=== PATIENT | female | born 1945 | race Caucasian/White ===

== ENCOUNTER → 2018-01-17 | Outpatient (CLI) | payer MEDICARE, OTHER ==
[~2018-01-17] MED LIST: AMI25 PO; AMIT-104 PO; AMLO-101 PO; AMLO2.5T74 PO; ASPI-1441 PO; ASPI-757 PO; ASPI-879 PO; ASPI325T22 PO; ATE50 PO; ATEN-65 PO; CEL100 PO; CELE-1 PO; CELE100C79 PO; CHOL100059 PO; DIA5 PO; DIAZ-308 PO; EST625 PO; FELO5TAB PO; FISH OIL1 CAP PO; FLUT9.9S; GABA-488 PO; HYDR-4309 PO; IRO150 PO; LOR5 PO; MULT-1 PO; NIT3 PO; OMEP-218 PO; OXYC-373 PO; OXYM-1 NS; PER PO; PRAV10TA45 PO; RANI150C14 PO; SIM10 PO; SOLI5TAB PO; WAR5 PO; WAR75 PO
--- NOTE | 2018-01-17 16:43 | EKG ---
FACILITY: [facility] - [place] PATIENT NAME: DAYANARA GOINS : [id number] MR: [id number] V: [id number] EXAM DATE: ORDERING PHYSICIAN: MICHAEL LYNN TECHNOLOGIST: CLAUDIA/CARLOS Test Reason : PRE OP CLEARANCE Blood Pressure : / mmHG Vent. Rate : 055 BPM Atrial Rate : 055 BPM P-R Int : 000 ms QRS Dur : 096 ms QT Int : 452 ms P-R-T Axes : 000 121 060 degrees QTc Int : 432 ms Atrial fibrillation Abnormal ECG When compared with ECG of 04-MAR-2017 13:24, No significant change was found Referred By: SHANE Confirmed By:
== END ==
LOC: RESP 16:17
PROVIDERS: ATTEND Surgery
DX: Z02.9 Encounter for administrative examinations, unspecified (principal)

== ENCOUNTER → 2018-01-23 | Outpatient (CLI) | payer MEDICARE, OTHER ==
--- NOTE | 2018-01-24 10:50 | RADIOLOGY IMAGING REPORT ---
FACILITY: [facility] - [place] PATIENT NAME: DAYANARA GOINS : [id number] MR: [id number] V: [id number] EXAM DATE: [id number] ORDERING PHYSICIAN: MICHAEL LYNN TECHNOLOGIST: Tima Delgadillo RDMS, [place] PROCEDURE:US RIGHT BREAST COMPLETE COMPARISON:None. INDICATIONS:CHECKING LYMPHNODES FOR BX FINDINGS: In the 1:30 position of the Right breast 6cm from the nipple there is a 3.4cm simple cyst. In the 3 o'clock position of the Right breast 6cm from the nipple there is 4.7mm simple cyst. No other masses cystic or solid are identified throughout the remainder of the Right breast. Images of the Right axilla demonstrated no evidence of Right axilla lymph nodes. DIAGNOSTIC CATEGORY 2--BENIGN FINDING. RECOMMENDATIONS: ROUTINE MAMMOGRAM AND CLINICAL EVALUATION. IMPRESSION: BIRADS 2: Benign finding. There are 2 small breast cysts 1 in the 1:30 position and 1 in the 3 o'clock position of the Right breast. No abnormal appearing lymph nodes are identified in the Right axilla. Dictated by: Sara Slade M.D. on 01/23/2018 at 17:06 Transcribed by: SHERYL on 01/24/2018 at 10:27 Approved by: Sara Slade M.D. on 01/24/2018 at 10:49 [facility]
== END ==
LOC: US 02:02
PROVIDERS: ATTEND Surgery
DX: N60.01 Solitary cyst of right breast (principal)

== ENCOUNTER → 2018-02-14 | Outpatient (CLI) | payer MEDICARE, OTHER | LOC: US 03:29 | PROVIDERS: ATTEND Internal Medicine Cardiovascular Disease | DX: I25.10 Atherosclerotic heart disease of native coronary artery without angina pectoris (principal); I51.7 Cardiomegaly | CPT/HCPCS: 93306 ==

== ENCOUNTER → 2018-02-15 | Outpatient (CLI) | payer MEDICARE, OTHER ==
[~2018-02-15] MED LIST changes: +REGADENOSON 0.4 MG/5 ML SYR ONE
--- NOTE | 2018-02-15 14:41 | RT STRESS TEST REPORT ---
[place] [facility] [place] DAYANARA GOINS : [id number] MR: [id number] V: [id number] EXAM DATE: ORDERING PHYSICIAN: SAMEER LOBO TECHNOLOGIST: Acquisition Time: 2018-02-15 14:35:31 Total Exercise Time: 00:01:00 Test Indications: Dyspnea Medications: see nuclear med sheet Protocol: LEXISCAN Max HR: 088 BPM 60% of Pred: 146 BPM Max BP: 183/089 mmHG Max Work Load: 1.0 METS Stress was performed using Lexiscan Protocol. She experienced chest tightness with infusion. This res olved quickly. EKGs show baseline rhythm is atrial fibrillation with controlled ventricular response. No significant ST-T changes were noted. No other dysrhythmias were recorded. Await TIDAL PETROLEUM Images. Confirmed by PRASHANTH WILSON ([id number]) on 02/15/2018 2:41:08 PM Referred By: Overread By: PRASHANTH WILSON
--- NOTE | 2018-02-15 16:08 | RADIOLOGY IMAGING REPORT ---
FACILITY: [facility] - [place] PATIENT NAME: Teresa Medrano : 1945 MR: [id number] V: [id number] EXAM DATE: ORDERING PHYSICIAN: SAMEER LOBO TECHNOLOGIST: Location: [facility] Patient: Teresa Medrano : 1945 Visit/Account:[id number] Date of Sevice: 02/15/2018 EXAMINATION: Single isotope SPECT imaging with regadenoson infusion and gated SPECT imaging. DATE OF EXAMINATION: 02/15/18. DATE OF INTERPRETATION: 02/15/18. REQUESTING PHYSICIAN: SAMEER LOBO. INDICATION: The patient is a 72-year-old F evaluated for dyspnea. PROCEDURE: After informed consent the patient received an intravenous injection of 12.7 mCi of Tc-99 m sestamibi followed at an appropriate time interval by rest imaging. The patient then subsequently received an intravenous infusion of 0.4 mg of regadenoson per protocol without complication. Resting heart rate was 65 bpm with a peak heart rate of 88 bpm. Blood pressure at rest was 183 / 89 and fol lowing infusion was 183 / 89. Baseline EKG demonstrates sinus rhythm. There were no EKG changes of ischemia following infusion. Symptoms were nonspecific. The patient then received an intravenous in jection of 29.8 mCi of Tc-99m sestamibi followed by stress imaging. RAW DATA: Examination of the summed raw data revealed a good quality study. MYOCARDIAL PERFUSION: The tomographic images demonstrate normal myocardial perfusion with no evidenc e of infarct or ischemia. There is no TID. GATED IMAGES: The gated images demonstrate hyperdynamic ejection fraction >70% with normal wall erne on and thickening. IMPRESSION: 1. Nondiagnostic Lexiscan stress ECG 2. Normal myocardial perfusion scan. 3. Hyperdynamic LV systolic function; LVEF >70%. 4. Based on the results of this exam, the patient appears to be at low risk for future cardiovascular events. Report Dictated By: Anish Chilel at 02/15/2018 4:02 PM Report E-Signed By: Anish Chilel at 02/15/2018 4:04 PM WSN:[id number]
== END ==
LOC: NUC 01:07
PROVIDERS: ATTEND Internal Medicine Cardiovascular Disease
DX: I25.10 Atherosclerotic heart disease of native coronary artery without angina pectoris (principal); R06.02 Shortness of breath
CPT/HCPCS: 93017; J2785; 78452; A9500

== ENCOUNTER → 2018-03-17 | Outpatient (CLI) | payer MEDICARE, OTHER ==
[~2018-03-17] MED LIST changes: -REGADENOSON 0.4 MG/5 ML SYR ONE
== END ==
LOC: LAB 15:21
PROVIDERS: ATTEND Physician Assistant
DX: I49.5 Sick sinus syndrome (principal)
CPT/HCPCS: 36415; 82040; 82247; 82310; 82374; 82435; 82565; 82947; 84075; 84132; 84155; 84295; 84450; 84460; 84520; 85027

== ENCOUNTER → 2018-04-10 | Outpatient (CLI) | payer MEDICARE, OTHER ==
[~2018-04-10] MED LIST changes: -HYDR-4309 PO; +HYDR-653 PO
--- NOTE | 2018-04-10 14:28 | RADIOLOGY IMAGING REPORT ---
FACILITY: [facility] PATIENT NAME: Teresa Medrano : 1945 MR: [id number] V: [id number] EXAM DATE: ORDERING PHYSICIAN: TRUDI LOYOLA TECHNOLOGIST: Location: [facility] - [place] Patient: Teresa Medrano : 1945 Visit/Account:[id number] Date of Sevice: 04/10/2018 CHEST PA AND LAT History: Swelling and pain left shoulder x4 days FINDINGS: Comparison studies: 10/08/2015 Tubes and Lines: None. Lungs and pleura: Well aerated. No evidence of focal consolidation or pleural effusions. Mediastinum: normal. Cardiac silhouette: Interval placement of a small leadless implantable pacemaker in the right ventric le. Cardiac silhouette normal in size. Osseous structures: Unremarkable for age . I see no evidence of radiographic abnormality in the general area of concern. The left glenohumeral joint, however, is excluded from the [id number]. IMPRESSION: No acute cardiopulmonary pathology identified. Report Dictated By: Tariq Larsen MD at 04/10/2018 2:22 PM Report E-Signed By: Tariq Larsen MD at 04/10/2018 2:24 PM WSN:[email or web address]
== END ==
LOC: RAD 11:26
PROVIDERS: ATTEND Nurse Practitioner Family
DX: M79.602 Pain in left arm (principal)
CPT/HCPCS: 71046

== ENCOUNTER 2018-04-15 12:03 | Emergency (ER) | payer MEDICARE, OTHER ==
[2018-04-15 12:07] VITALS: BP 126/64
[2018-04-15] MEDS ORDERED: CYCL-277 PO (12:10)
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
== END 2018-04-15 13:25 | disposition home or self-care (01) ==
LOC: ER 12:10
DX: S50.11XA Contusion of right forearm, initial encounter (principal); W20.8XXA Other cause of strike by thrown, projected or falling object, initial encounter
CPT/HCPCS: 73090; 99283; A4565

== ENCOUNTER 2018-06-18 15:11 | Emergency (ER) | payer MEDICARE, OTHER ==
[~2018-06-18 15:11] MED LIST changes: +CYCL-277 PO
--- NOTE | 2018-06-18 15:26 | ER Report ---
History and Physical Time Seen By MD: 15:25 HPI/ROS CHIEF COMPLAINT: Back, left arm and chest pain HISTORY OF PRESENT ILLNESS: 73-year-old female patient presents to emergency room with complaint of intermittent pain starts off behind her left shoulder blade that radiates up over into her chest and lateral left arm. Patient does have a pacemaker and she's concerned that that may be part of the problem. She also is concerned she may be having small VT. She states this typically occurs at nighttime. She states the when she we'll get off that seems to be better. She does state that it will happen occasionally in the daytime, however she is often active and does not notice it. She denies having any fevers, chills, nausea, vomiting or diarrhea. Patient states she is not taking any medication for this. She states this been going on for the last 4 days. REVIEW OF SYSTEMS: Respiratory: No cough, no dyspnea. Cardiovascular: As noted above Gastrointestinal: No vomiting, no abdominal pain. Musculoskeletal: No back pain. Allergies: Coded Allergies: latex (Verified Allergy, Severe, HIVES, 06/18/18) oxymetazoline (Verified Allergy, Severe, 06/18/18) "Heart goes nuts" phenylephrine (Verified Allergy, Severe, 06/18/18) "Heart goes nuts" xylometazoline (Verified Allergy, Severe, 06/18/18) "Heart goes nuts" adhesive tape (Verified Allergy, Intermediate, Blisters, 06/18/18) Blisters Home Meds Active Scripts Cyclobenzaprine Hcl (CYCLOBENZAPRINE HCL) 10 Mg Tablet, 5 MG PO TID PRN for MUSCLE SPASMS, #9 TAB Prov:JONAH WONG DUST [employer]KER 06/18/18 Reported Medications Cyclobenzaprine Hcl (CYCLOBENZAPRINE HCL) 5 Mg Tablet, 10 MG PO TID, #18 TAB 04/15/18 Amitriptyline Hcl (AMITRIPTYLINE HCL) 10 Mg Tablet, 10 MG PO QHS, #5 TAB 01/18/18 Aspirin (ASPIRIN) 325 Mg Tablet, 325 MG PO QDAY, TAB 12/16/16 Gabapentin (NEURONTIN) 100 Mg Capsule, 100 MG PO 3-4XD, CAPSULE 12/16/16 Celecoxib (CELEBREX) 100 Mg Capsule, 100 MG PO BID, CAPSULE 12/16/16 Amlodipine Besylate (NORVASC) 5 Mg Tablet, 1 TAB PO QDAY, TAB 09/22/15 Solifenacin Succinate (VESICARE) 5 Mg Tablet, 5 MG PO DAILY 10/18/14 Fluticasone Propionate (Flonase Allergy Relief) 9.9 Ml [place].susp, 1 SPRAY NA QHS 10/18/14 Cholecalciferol (Vitamin D3) (VITAMIN D3) 1,000 Unit Capsule, 1000 UNIT PO BID, CAPSULE 10/18/14 Atenolol (ATENOLOL) 25 Mg Tablet, 1 TAB PO BID, TAB TAKE ONE TABLET BY MOUTH TWICE A DAY 10/18/14 Nitroglycerin (Nitrostat) 0.3 Mg Subl, 0.4 MG PO PRN, 0 Refills 03/07/11 [place]-3 Fatty Acids (Fish Oil) 1 Cap Capsule, 1 CAP PO BID BID 03/06/11 Ranitidine Hcl (Zantac) 150 Mg Capsule, 150 MG PO AT BEDTIME 03/06/11 Omeprazole Magnesium (Prilosec Otc) 20 Mg Tablet.dr, 20 MG PO QDAY 03/06/11 Estrogens Conjugated (Premarin) 0.625 Mg Tab, 0.3 MG PO QDAY 03/06/11 Past Medical/Surgical History Patient has a past medical history of TIA, migraines, mitral valve prolapse, atrial fibrillation, hyperlipidemia, histoplasmosis, staph aureus and lung, occasional incontinence, hip bursitis, anxiety. Patient has surgical history of a cyst removed from neck, deviated septum, back surgery, carpal tunnel release, ulnar nerve surgery, bladder rebuild, hysterectomy, umbilical hernia repair, heart catheter. Patient has a family medical history of CAD, stroke. Reviewed Nurses Notes: Yes Hx Smoking: No Smoking Status: Never Smoker Hx Substance Use Disorder: No Hx Alcohol Use: No Constitutional Vital Sign - Last 24 Hours 06/18/18 06/18/18 06/18/18 06/18/18 15:22 15:25 15:26 15:30 Temp 97.5 Pulse 66 72 Resp 14 B/P (MAP) 141/82 141/82 (101) 139/91 (107) Pulse Ox 90 96 O2 Delivery Room Air 06/18/18 06/18/18 06/18/18 06/18/18 15:41 15:56 16:00 16:11 Pulse 63 90 64 Resp 8 9 Pulse Ox 97 94 95 O2 Flow Rate 2.0 06/18/18 06/18/18 06/18/18 06/18/18 16:16 16:30 16:31 16:46 Pulse 65 61 60 Resp 9 16 13 B/P (MAP) 130/63 (85) Pulse Ox 97 97 95 Physical Exam General Appearance: The patient is alert, has no immediate need for airway protection and no current signs of toxicity. Respiratory: Chest is non tender, lungs are clear to auscultation. Cardiac: regular rate and rhythm Gastrointestinal: Abdomen is soft and non tender, no masses, bowel sounds normal. Musculoskeletal: Neck: Neck is non tender. The left trapezius muscle is extremely tight. Extremities have full range of motion and are non tender. Skin: No rashes or lesions. DIFFERENTIAL DIAGNOSIS: After history and physical exam differential diagnosis was considered for chest pain including but not limited to myocardial ischemia, pericarditis pulmonary embolus, chest wall pain, pleural inflammation and pulmonary infectious causes. Medical Decision Making Data Points Result Diagram: 06/18/18 1546 06/18/18 1546 Laboratory Hematology Test 06/18/18 15:46 Red Blood Count 4.84 M/uL (4.17-5.56) Mean Corpuscular Volume 87.6 fL (80.0-96.0) Mean Corpuscular Hemoglobin 29.2 pg (26.0-33.0) Mean Corpuscular Hemoglobin Concent 33.4 g/dL (32.0-36.0) Red Cell Distribution Width 15.0 % (11.5-14.5) Mean Platelet Volume 8.1 fL (7.2-11.1) Neutrophils (%) (Auto) 59.6 % (39.4-72.5) Lymphocytes (%) (Auto) 27.4 % (17.6-49.6) Monocytes (%) (Auto) 10.4 % (4.1-12.4) Eosinophils (%) (Auto) 1.5 % (0.4-6.7) Basophils (%) (Auto) 1.1 % (0.3-1.4) Nucleated RBC Relative Count (auto) 0.1 /100WBC Neutrophils # (Auto) 4.2 K/uL (2.0-7.4) Lymphocytes # (Auto) 1.9 K/uL (1.3-3.6) Monocytes # (Auto) 0.7 K/uL (0.3-1.0) Eosinophils # (Auto) 0.1 K/uL (0.0-0.5) Basophils # (Auto) 0.1 K/uL (0.0-0.1) Nucleated RBC Absolute Count (auto) 0.00 K/uL Prothrombin Time 13.1 seconds (12.0-14.4) Prothromb Time International Ratio 0.99 Activated Partial Thromboplast Time 30 seconds (23-35) Sodium Level 140 mmol/L (137-145) Potassium Level 4.4 mmol/L (3.5-5.0) Chloride Level 104 mmol/L (98-107) Carbon Dioxide Level 27 mmol/L (22-31) Blood Urea Nitrogen 22 mg/dl (7-18) Creatinine 0.70 mg/dl (0.52-1.04) Glomerular Filtration Rate Calc > 60.0 Random Glucose 88 mg/dl (75-110) Calcium Level 9.7 mg/dl (8.4-10.2) Total Bilirubin 0.5 mg/dl (0.2-1.3) Aspartate Amino Transf (AST/SGOT) 27 U/L (0-35) Alanine Aminotransferase (ALT/SGPT) 23 U/L (0-56) Alkaline Phosphatase 79 U/L (0-126) Troponin I < 0.012 ng/ml Total Protein 7.9 g/dl (6.3-8.2) Albumin 4.5 g/dl (3.5-5.0) Chemistry Test 06/18/18 15:46 White Blood Count 7.0 k/uL (4.5-11.0) Red Blood Count 4.84 M/uL (4.17-5.56) Hemoglobin 14.2 g/dL (12.0-16.0) Hematocrit 42.4 % (34.0-47.0) Mean Corpuscular Volume 87.6 fL (80.0-96.0) Mean Corpuscular Hemoglobin 29.2 pg (26.0-33.0) Mean Corpuscular Hemoglobin Concent 33.4 g/dL (32.0-36.0) Red Cell Distribution Width 15.0 % (11.5-14.5) Platelet Count 257 K/uL (150-450) Mean Platelet Volume 8.1 fL (7.2-11.1) Neutrophils (%) (Auto) 59.6 % (39.4-72.5) Lymphocytes (%) (Auto) 27.4 % (17.6-49.6) Monocytes (%) (Auto) 10.4 % (4.1-12.4) Eosinophils (%) (Auto) 1.5 % (0.4-6.7) Basophils (%) (Auto) 1.1 % (0.3-1.4) Nucleated RBC Relative Count (auto) 0.1 /100WBC Neutrophils # (Auto) 4.2 K/uL (2.0-7.4) Lymphocytes # (Auto) 1.9 K/uL (1.3-3.6) Monocytes # (Auto) 0.7 K/uL (0.3-1.0) Eosinophils # (Auto) 0.1 K/uL (0.0-0.5) Basophils # (Auto) 0.1 K/uL (0.0-0.1) Nucleated RBC Absolute Count (auto) 0.00 K/uL Prothrombin Time 13.1 seconds (12.0-14.4) Prothromb Time International Ratio 0.99 Activated Partial Thromboplast Time 30 seconds (23-35) Glomerular Filtration Rate Calc > 60.0 Calcium Level 9.7 mg/dl (8.4-10.2) Total Bilirubin 0.5 mg/dl (0.2-1.3) Aspartate Amino Transf (AST/SGOT) 27 U/L (0-35) Alanine Aminotransferase (ALT/SGPT) 23 U/L (0-56) Alkaline Phosphatase 79 U/L (0-126) Troponin I < 0.012 ng/ml Total Protein 7.9 g/dl (6.3-8.2) Albumin 4.5 g/dl (3.5-5.0) Coagulation Test 06/18/18 15:46 Prothrombin Time 13.1 seconds Prothromb Time International Ratio 0.99 Activated Partial Thromboplast Time 30 seconds EKG/Imaging EKG Interpretation 12 lead EKG: Rhythm: A. fib with PACs, patient also has an on demand pacemaker. [place]: normal QRS: normal ST segments: Nonspecific ST abnormality Imaging EXAMINATION: Chest 2 Views HISTORY: Chest pain. COMPARISON: 04/10/2018. FINDINGS: The lungs are clear. No focal consolidation or pleural effusion. No pneumothorax. Normal heart size and pulmonary vascularity, with stable cardiomediastinal conto urs. A leadless pacemaker projects over the right ventricle, stable in position. No acute osseous findings in the chest. IMPRESSION: No evidence of acute cardiopulmonary disease. Stable exam. Report Dictated By: Pj Damon MD at 06/18/2018 4:08 PM Report E-Signed By: Pj Damon MD at 06/18/2018 4:10 PM ED Course/Re-evaluation ED Course Patient was admitted to an exam room, history and physical were obtained. Differential diagnoses were considered. On examination lungs are clear, heart is regular, abdomen soft nontender. Patient does have significant muscle tightness to the left trapezius muscle. A CBC, CMP, troponin, EKG, PT, PTT were done. The lab results were unremarkable, troponin was undetectable. EKG showed atrial fibrillation with PACs. Chest x-ray was negative. I discussed the findings with the patient. I do not believe that she is having a heart attack, however I do believe that she has muscle spasms which are worsened with laying down at night. As a result we will go ahead and treat her with Flexeril. She is to limit her activity by pain. 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 Patient states she did have an appointment on the eighth. Looking through the schedule for specialist coming to [place] her director of hotel operations does have a partner this up on the fourth, I encouraged her to call tomorrow to see if she will be able to get in to get her pacemaker interrogated on the fourth. Patient and her verbalized understanding and agreement with plan. Decision to Disposition Date: Jun 18, 2018 Decision to Disposition Time: 16:44 Depart Departure Latest Vital Signs Vital Signs Date Time Temp Pulse Resp B/P (MAP) Pulse Ox O2 Delivery O2 Flow Rate FiO2 06/18/18 16:46 60 13 95 06/18/18 16:30 130/63 (85) 06/18/18 16:00 2.0 06/18/18 15:22 97.5 Room Air Impression: Primary Impression: Muscle spasm Condition: Improved Disposition: HOME OR SELF-CARE Referrals: TRUDI LOYOLA (PCP) New Scripts Cyclobenzaprine Hcl (CYCLOBENZAPRINE HCL) 10 Mg Tablet 5 MG PO TID PRN for MUSCLE SPASMS, #9 TAB Prov: JONAH WONG 06/18/18 Patient Instructions: Muscle Spasm (ED) Additional Instructions: Limit activity by pain. Take the muscle relaxers especially at night. Follow up with Dr. Higginbotham to get your pacemaker challenge. Return to the ER if condition worsens. Increase fluid intake. Continue with normal activity. JONAH WONG Jun 18, 2018 15:25
[2018-06-18] MEDS ORDERED: ASPIRIN 81 MG CHEW PO ONE (15:35)
[2018-06-18 15:54] LABS: PLATELET COUNT, AUTOMATED 257 K/uL (150-450)
--- NOTE | 2018-06-18 16:03 | EKG ---
FACILITY: [facility] [place] PATIENT NAME: DAYANARA GOINS : [id number] MR: [id number] V: [id number] EXAM DATE: ORDERING PHYSICIAN: JONAH WONG TECHNOLOGIST: Test Reason : CHEST PAIN Blood Pressure : / mmHG Vent. Rate : 063 BPM Atrial Rate : 500 BPM P-R Int : 000 ms QRS Dur : 090 ms QT Int : 438 ms P-R-T Axes : 000 129 069 degrees QTc Int : 448 ms Demand pacemaker, interpretation is based on intrinsic rhythm Atrial fibrillation Left posterior fascicular block Nonspecific ST abnormality , probably digitalis effect Abnormal ECG When compared with ECG of 17-JAN-2018 15:25, Electronic demand pacing is now present T wave inversion now evident in Anterior leads Confirmed by MICHAEL OSEI ([id number]) on 06/19/2018 6:44:48 AM Referred By: Confirmed By:MICHAEL OSEI
--- NOTE | 2018-06-18 16:13 | RADIOLOGY IMAGING REPORT ---
FACILITY: [facility] [place] PATIENT NAME: Teresa Medrano : 1945 MR: [id number] V: [id number] EXAM DATE: ORDERING PHYSICIAN: JONAH WONG TECHNOLOGIST: Location: [facility] Patient: Teresa Medrano : 1945 Visit/Account:[id number] Date of Sevice: 06/18/2018 EXAMINATION: Chest 2 Views HISTORY: Chest pain. COMPARISON: 04/10/2018. FINDINGS: The lungs are clear. No focal consolidation or pleural effusion. No pneumothorax. Normal heart size and pulmonary vascularity, with stable cardiomediastinal contours. A leadless pacem corinne projects over the right ventricle, stable in position. No acute osseous findings in the chest. IMPRESSION: No evidence of acute cardiopulmonary disease. Stable exam. Report Dictated By: Pj Damon MD at 06/18/2018 4:08 PM Report E-Signed By: Pj Damon MD at 06/18/2018 4:10 PM WSN:[id number]
[2018-06-18 16:19] LABS: INR 0.99
[2018-06-18 16:30] VITALS: BP 130/63
[2018-06-18] MEDS ORDERED: CYCL10TA29 PO (16:42)
[2018-06-18] MEDS ORDERED: CYCLOBENZAPRINE HCL 10 MG TH PO ONE (16:50)
== END 2018-06-18 17:01 | disposition home or self-care (01) ==
LOC: ER 15:32
DX: M62.838 Other muscle spasm (principal); Z95.0 Presence of cardiac pacemaker
CPT/HCPCS: 71046; 84484; 85025; 85610; 85730; 93005; 99284; A9270; 82040; 82247; 82310; 82374; 82435; 82565; 82947; 84075; 84132; 84155; 84295; 84450; 84460; 84520

== ENCOUNTER 2018-06-23 13:32 | Emergency (ER) | payer MEDICARE, OTHER ==
[~2018-06-23 13:32] MED LIST changes: +CYCL10TA29 PO
[2018-06-23] MEDS ORDERED: AMOX/CLAV 875 MG TAB PO ONE (13:55)
[2018-06-23] MEDS ORDERED: LIDOCAINE/SOD BICARB 8.4% SYR SC ONE (14:05)
[2018-06-23] MEDS ORDERED: WATER STERILE IRRIG(*) 1000ML 1,000 ML ONE (14:43)
[2018-06-23 15:00] VITALS: BP 150/69
[2018-06-23] MEDS ORDERED: AMOX-559 PO (15:39)
--- NOTE | 2018-06-23 15:40 | ER Report ---
History and Physical Time Seen By MD: 13:45 Hx. of Stated Complaint: IGUANA BITE HPI/ROS CHIEF COMPLAINT: laceration HISTORY OF PRESENT ILLNESS: Pt was petting her iguana 1 hr [employer] when it suddenly bit her left index finger. It did not clamp down; she was easily able to extract it. She irrigated at home with water and iodine, and presented due to continued bleeding. Denies loos of sensation. Pain is moderate. She denies hamilton/chills/ fever/n/v/other injuries. Tetanus UTD last year. REVIEW OF SYSTEMS: Constitutional: No fever, no chills Cardiovascular: No chest pain, no palpitations. Respiratory: No cough, no shortness of breath. Gastrointestinal: No abdominal pain, no vomiting. Musculoskeletal: above Skin: above Neurological: No headache. Remainder of the 14 system rev: Yes Allergies: Coded Allergies: latex (Verified Allergy, Severe, HIVES, 06/18/18) oxymetazoline (Verified Allergy, Severe, 06/18/18) "Heart goes nuts" phenylephrine (Verified Allergy, Severe, 06/18/18) "Heart goes nuts" xylometazoline (Verified Allergy, Severe, 06/18/18) "Heart goes nuts" adhesive tape (Verified Allergy, Intermediate, Blisters, 06/18/18) Blisters Home Meds Active Scripts Amoxicillin/Pot Clav 875-125 Mg Tab (AUGMENTIN 875-125 TABLET) 1 Each Tablet, 1 TAB PO Q12H for 4 Days, #8 TAB Prov:GLADIS PARSON MD 06/23/18 Cyclobenzaprine Hcl (CYCLOBENZAPRINE HCL) 10 Mg Tablet, 5 MG PO TID PRN for MUSCLE SPASMS, #9 TAB Prov:JONAH WONG 06/18/18 Reported Medications Cyclobenzaprine Hcl (CYCLOBENZAPRINE HCL) 5 Mg Tablet, 10 MG PO TID, #18 TAB 04/15/18 Amitriptyline Hcl (AMITRIPTYLINE HCL) 10 Mg Tablet, 10 MG PO QHS, #5 TAB 01/18/18 Aspirin (ASPIRIN) 325 Mg Tablet, 325 MG PO QDAY, TAB 12/16/16 Gabapentin (NEURONTIN) 100 Mg Capsule, 100 MG PO 3-4XD, CAPSULE 12/16/16 Celecoxib (CELEBREX) 100 Mg Capsule, 100 MG PO BID, CAPSULE 12/16/16 Amlodipine Besylate (NORVASC) 5 Mg Tablet, 1 TAB PO QDAY, TAB 09/22/15 Solifenacin Succinate (VESICARE) 5 Mg Tablet, 5 MG PO DAILY 10/18/14 Fluticasone Propionate (Flonase Allergy Relief) 9.9 Ml [place].susp, 1 SPRAY NA QHS 10/18/14 Cholecalciferol (Vitamin D3) (VITAMIN D3) 1,000 Unit Capsule, 1000 UNIT PO BID, CAPSULE 10/18/14 Atenolol (ATENOLOL) 25 Mg Tablet, 1 TAB PO BID, TAB TAKE ONE TABLET BY MOUTH TWICE A DAY 10/18/14 Nitroglycerin (Nitrostat) 0.3 Mg Subl, 0.4 MG PO PRN, 0 Refills 03/07/11 [place]-3 Fatty Acids (Fish Oil) 1 Cap Capsule, 1 CAP PO BID BID 03/06/11 Ranitidine Hcl (Zantac) 150 Mg Capsule, 150 MG PO AT BEDTIME 03/06/11 Omeprazole Magnesium (Prilosec Otc) 20 Mg Tablet.dr, 20 MG PO QDAY 03/06/11 Estrogens Conjugated (Premarin) 0.625 Mg Tab, 0.3 MG PO QDAY 03/06/11 Hx Smoking: No Smoking Status: Never Smoker Hx Substance Use Disorder: No Hx Alcohol Use: No Constitutional Vital Sign - Last 24 Hours 06/23/18 06/23/18 06/23/18 06/23/18 13:32 13:35 13:36 14:00 Temp 97.6 Pulse ??? 86 Resp 14 B/P (MAP) 152/85 (107) 152/85 125/66 (85) Pulse Ox 90 06/23/18 06/23/18 06/23/18 06/23/18 14:02 14:30 14:32 15:00 Pulse 60 61 B/P (MAP) 142/88 (106) 150/69 (96) Pulse Ox 90 95 Physical Exam General Appearance: The patient is alert, has no immediate need for airway protection and no current signs of toxicity. Eyes: Pupils equal and round no injection. Respiratory: lungs clear to auscultation bilaterally Cardiac: regular rate and rhythm Musculoskeletal: Extremities have full range of motion and are non tender with exception of left index finger; Skin: left index finger; 2 1cm lacerations that are on the lateral and medial aspect of the finger just distal to the left PIP. additional 0.4mm intact laceration at the radial distal finger that extends to the nail bed, without ac tive bleeding. DIFFERENTIAL DIAGNOSIS: After history and physical exam differential diagnosis was considered for bone, tendon, joint injury, foreign body, risk for infection. Medical Decision Making ED Course/Re-evaluation ED Course Pt presents after reptilian bite by her michelle. This is considered a dirty wound, even with thorough irrigation. Augmentin administered prior to irrigation. I irrigated and explored thoroughly until I could be reasonably sure no deep structures involved. Repaired in order to decrease bleeding; therefore distal laceration left open due to infection risk. Pt understands SRP's and will take augmentin prophylactically. Procedure Procedure: Laceration repair. Verbal consent was obtained from the patient. The 1cm x 2 laceration on the index finger was anesthetized via digital block at the MCP joint. 4mL of a 50% solution of 0.5%marcaine and 1% buffered lidocaine was used. The wound was irrigated thoroughly with 600mL of NS, draped and explored to its base with a cotton tip applicator and hemostats There were no deep structures involved. Specifically, no joint capsule disruption, no bony fragments. No tendon injury was identified. the laceration did not extend to midline dorsal/volar aspect of the finger. The wound was repaired with 10 x 4.0 ethilon sutures. The wound repair was simple. The procedure was performed by myself. Decision to Disposition Date: Jun 23, 2018 Decision to Disposition Time: 15:29 Depart Departure Latest Vital Signs Vital Signs Date Time Temp Pulse Resp B/P (MAP) Pulse Ox O2 Delivery O2 Flow Rate FiO2 06/23/18 15:00 150/69 (96) 06/23/18 14:32 61 95 06/23/18 13:36 97.6 14 Impression: Primary Impression: Reptile bite Condition: Improved Disposition: HOME OR SELF-CARE Referrals: TRUDI LOYOLA [employer] (PCP) New Scripts Amoxicillin/Pot Clav 875-125 Mg Tab (AUGMENTIN 875-125 TABLET) 1 Each Tablet 1 TAB PO Q12H for 4 Days, #8 TAB Prov: GLADIS PARSON MD 06/23/18 Patient Instructions: Finger Laceration (ED) Additional Instructions: As we discussed; have sutures removed in 7 days. Return for redness, swelling, uncontrolled pain, or any concerns. Keep covered for 48 hours, then uncover, gently rinse, and apply bacitracin 2-3 times daily, with bandage as needed. Problem Qualifiers Primary Impression: Reptile bite Encounter type: initial encounter Qualified Codes: W59.81XA - Bitten by other nonvenomous reptiles, initial encounter GLADIS PARSON MD Jun 23, 2018 15:40
== END 2018-06-23 16:00 | disposition home or self-care (01) ==
LOC: ER 13:37
DX: S61.211A Laceration without foreign body of left index finger without damage to nail, initial encounter (principal); W59.01XA Bitten by nonvenomous lizards, initial encounter
CPT/HCPCS: 12001; 99283; A9270

== ENCOUNTER → 2018-12-28 | Outpatient (CLI) | payer MEDICARE, OTHER ==
[~2018-12-28] MED LIST changes: +AMOX-559 PO
[2018-12-28 13:05] LABS: PLATELET COUNT, AUTOMATED 219 K/uL (150-450)
[2018-12-28 13:16] LABS: LDL CHOLESTEROL 143 mg/dl
== END ==
LOC: LAB 12:22
PROVIDERS: ATTEND Nurse Practitioner Family
DX: R53.83 Other fatigue (principal); I10 Essential (primary) hypertension; E78.5 Hyperlipidemia, unspecified
CPT/HCPCS: 36415; 82040; 82247; 82310; 82374; 82435; 82465; 82565; 82947; 83718; 84075; 84132; 84155; 84295; 84443; 84450; 84460; 84478; 84520; 85025